=== PATIENT | male | born 1975 | race Caucasian/White ===

== ENCOUNTER 2020-08-19 13:44 | Outpatient (CLI) | payer BC ==
--- NOTE | 2020-08-19 16:04 | MRI ---
EXAM: MRI Lower Ext Jt Lt WO Con DATE: 08/19/2020 2:55 PM INDICATION: Left inguinal pain after performing a squat and feeling a pop in the left leg on 2019 COMPARISON: None. FINDING: There is a 2.2 x 3.9 x 5.3 cm peripherally T1 hyperintense, T2 hyperintense mass lesion wit hin the proximal musculature of the left vastus medialis muscle. There is mild surrounding edema within the proximal left VMO as well as within the adjacent fascia. No additional muscular signal abn ormality is evident. The visualized femur appears intact. The iliopsoas, left abductor musculature appears within normal limits. The left rectus femoris and hamstring origins appear within normal limi ts. No enlarged lymph nodes are evident. The sciatic nerve is normal-appearing. The visualized osseous structures of the left hemipelvis appear within normal limits. Intrapelvic contents reveal no acute abnormality. There is a fat-containing left inguinal hernia. The left hip joint reveals no joint effusion or paralabral cyst. IMPRESSION: 1. Grade 2 muscular strain of the proximal left vastus medialis musculature with associated intramusc ular hematoma.
== END 2020-08-19 13:45 | disposition home or self-care (01) ==
LOC: BICMRI 13:44
PROVIDERS: ATTEND Family Medicine
DX: R10.30 Lower abdominal pain, unspecified (principal); S76.112A Strain of left quadriceps muscle, fascia and tendon, initial encounter; S70.12XA Contusion of left thigh, initial encounter

== ENCOUNTER 2021-10-05 10:07 | Outpatient (CLI) | payer BC ==
[2021-10-05 10:54] LABS: #Basophils 0.1 10x3/uL (0.0-0.2); #Eosinphils 0.3 10x3/uL (0.0-0.5); #Monocytes 0.6 10x3/uL (0.0-1.1); %Basophils 0.8 % (0.0-2.0); %Eosinophils 2.8 % (0.0-6.0); %Lymphocytes 34.6 % (18.0-47.0); %Monocytes 6.9 % (0.0-10.0); %Neutrophils 54.4 % (40.0-75.0); Hemoglobin 15.6 g/dL (13.5-17.5); Mean Corpuscular HGB CONC 31.5 g/dL (32.0-36.0); Mean Corpuscular Hemoglobin 27.7 pg (27.0-33.0); Mean Corpuscular Volume 87.9 fl (81.2-95.1); Mean Platelet Volume 9.4 fl (7.4-10.4); Platelet Count 277 10x3/uL (150-450); RBC Distribution Width 13.3 % (11.5-14.5); Red Blood Cell (RBC) Count 5.64 10x6/uL (4.32-5.72); White Blood Cell (WBC) Count 9.2 10x3/uL (3.5-10.5)
[2021-10-05 19:54] LABS: SARS-CoV-2 PCR by NAA Not Detected (NotDetected)
== END 2021-10-05 10:08 | disposition home or self-care (01) ==
LOC: LABBT 10:07
PROVIDERS: ATTEND Surgery
DX: Z01.812 Encounter for preprocedural laboratory examination (principal); K40.90 Unilateral inguinal hernia, without obstruction or gangrene, not specified as recurrent; Z20.822 Contact with and (suspected) exposure to COVID-19
CPT/HCPCS: 85025; U0003; U0005

== ENCOUNTER 2021-10-08 06:33 | Day surgery (SDC) | payer BC ==
[2021-10-05 09:40] VITALS: BMI 32.1
[2021-10-08] MEDS ORDERED: Bupivacaine 0.25% HCL 30 ML VIAL ONE (07:03)
[2021-10-08] MEDS ORDERED: Xylocaine 1% w/ Epi 1:100K 10 ML VIAL ONE (07:03)
[2021-10-08] MEDS ORDERED: Midazolam HCl 2 mg/2 ml Vial ONE (07:06)
[2021-10-08] MEDS ORDERED: Fentanyl 100 MCG/2 ML VIAL ONE ×2 (07:06)
[2021-10-08] MEDS ORDERED: Levofloxacin 500 mg/D5W 100 ml Premix Bag ONE (07:38)
[2021-10-08] MEDS ORDERED: Dexamethasone 20 MG/5 ML VIAL ONE (07:56)
[2021-10-08] MEDS ORDERED: PROPOFOL 200 MG/20 ML VIAL ONE (07:56)
[2021-10-08] MEDS ORDERED: Lidocaine 1% PF 5 ML VIAL ONE (07:56)
[2021-10-08] MEDS ORDERED: Ondansetron PF 4 MG/2 ML Vial ONE (07:56)
[2021-10-08] MEDS ORDERED: Ketorolac Tromethamine 30 MG/ML VIAL ONE (08:53)
== END 2021-10-08 10:03 | disposition home or self-care (01) ==
LOC: SDC 06:33
PROVIDERS: ATTEND Surgery
PROC: 0YU60JZ Supplement Left Inguinal Region with Synthetic Substitute, Open Approach (ICD-10-PCS; principal; 2021-10-08)
DX: K40.90 Unilateral inguinal hernia, without obstruction or gangrene, not specified as recurrent (principal); D17.6 Benign lipomatous neoplasm of spermatic cord; Z79.899 Other long term (current) drug therapy; Z88.0 Allergy status to penicillin; Z91.040 Latex allergy status; Z91.048 Other nonmedicinal substance allergy status
CPT/HCPCS: C1781; J1100; J1885; J1956; J2250; J2405; J2704; J3010; S0020

== ENCOUNTER 2023-09-01 10:58 | Outpatient (CLI) | payer BC ==
[2023-09-01 13:33] LABS: #Eosinphils 0.2 10x3/uL (0.0-0.5); #Monocytes 0.7 10x3/uL (0.0-1.1); #Neutrophils 4.6 10x3/uL (1.5-8.4); %Basophils 0.5 % (0.0-2.0); %Eosinophils 2.4 % (0.0-6.0); %Lymphocytes 31.8 % (18.0-47.0); %Monocytes 8.3 % (0.0-10.0); %Neutrophils 56.5 % (40.0-75.0); Hematocrit 49.7 % (38.8-50.0); Hemoglobin 16.7 g/dL (13.5-17.5); Mean Corpuscular HGB CONC 33.6 g/dL (32.0-36.0); Mean Corpuscular Hemoglobin 29.6 pg (27.0-33.0); Mean Platelet Volume 9.8 fl (7.4-10.4); Platelet Count 264 10x3/uL (150-450); Red Blood Cell (RBC) Count 5.65 10x6/uL (4.32-5.72); White Blood Cell (WBC) Count 8.1 10x3/uL (3.5-10.5)
== END 2023-09-01 10:59 | disposition home or self-care (01) ==
LOC: LABBT 10:58
PROVIDERS: ATTEND Orthopaedic Surgery
DX: Z01.812 Encounter for preprocedural laboratory examination (principal); S46.211A Strain of muscle, fascia and tendon of other parts of biceps, right arm, initial encounter
CPT/HCPCS: 85025

== ENCOUNTER 2023-09-05 07:00 | Day surgery (SDC) | payer BC ==
[2023-09-01 11:44] VITALS: BMI 34.2
[2023-09-05] MEDS ORDERED: Midazolam HCl 2 mg/2 ml Vial ONE (08:39)
[2023-09-05] MEDS ORDERED: Bupivacaine PF 0.5% 30 ML VIAL ONE (08:39)
[2023-09-05] MEDS ORDERED: fentaNYL 50 mcg/mL 1 mL Vial ONE (08:39)
[2023-09-05] MEDS ORDERED: Bupivacaine HCl 0.5%/Epinephrine 1:200,000/PF 30 ml Vial ONE (08:50)
[2023-09-05] MEDS ORDERED: Lidocaine 1% (PF) 30 ML VIAL ONE (08:57)
[2023-09-05] MEDS ORDERED: LevoFLOXacin D5W 500 mg (100 mL) BAG ONE (09:06)
[2023-09-05] MEDS ORDERED: Lidocaine 1% PF 5 ML VIAL ONE (09:09)
[2023-09-05] MEDS ORDERED: PROPOFOL 20 ML ONE (09:09)
[2023-09-05] MEDS ORDERED: Ondansetron PF 4 MG/2 ML Vial ONE (09:09)
[2023-09-05] MEDS ORDERED: Dexamethasone 20 MG/5 ML VIAL ONE (09:09)
[2023-09-05] MEDS ORDERED: Lidocaine 2% 6 ML (Jelly) SYR ONE (09:09)
[2023-09-05] MEDS ORDERED: fentaNYL PF 100 MCG/2 ML SYRINGE ONE (09:09)
[2023-09-05] MEDS ORDERED: Clindamycin/D5W 900 mg/50 ml Premix Bag ONE (09:18)
[2023-09-05] MEDS ORDERED: ePHEDrine Sulfate 50 MG/10 ML VIAL ONE (10:17)
[2023-09-05] MEDS ORDERED: Sevoflurane 250 ML INH ANEST BOTTLE ONE (11:01)
== END 2023-09-05 13:30 | disposition home or self-care (01) ==
LOC: SDC 07:00
PROVIDERS: ATTEND Orthopaedic Surgery
PROC: 0LR Tendons, Replacement (ICD-10-PCS; principal; 2023-09-05)
DX: S46.211A Strain of muscle, fascia and tendon of other parts of biceps, right arm, initial encounter (principal); J32.9 Chronic sinusitis, unspecified; F10.90 Alcohol use, unspecified, uncomplicated; Z98.890 Other specified postprocedural states; Z88.0 Allergy status to penicillin; Z79.899 Other long term (current) drug therapy
CPT/HCPCS: C1713; J1100; J1956; J2001; J2250; J2405; J2704; J3010; J3490; S0020

== ENCOUNTER 2024-08-20 10:09 | Outpatient (CLI) | payer BC ==
[2024-08-20 10:47] LABS: #Basophils 0.06 10x3/uL (0.0-0.2); %Basophils 0.7 % (0.0-1.0); %Eosinophils 0.9 % (0.0-10.0); %Lymphocytes 22.9 % (21.0-51.0); %Monocytes 5.7 % (0.0-10.0); %Neutrophils 69.5 % (42.0-75.0); Hematocrit 53.1 % (42.0-52.0); Hemoglobin 17.8 g/dL (14.0-18.0); Mean Corpuscular HGB CONC 33.5 g/dL (32.0-36.0); Mean Corpuscular Hemoglobin 29.2 pg (27.0-31.0); Mean Corpuscular Volume 87.2 fL (78.0-98.0); Mean Platelet Volume 9.3 fL (7.4-10.4); Platelet Count 261 10x3/uL (130-400); Red Blood Cell (RBC) Count 6.09 mill/uL (4.70-6.10)
[2024-08-20 11:12] LABS: Anion Gap 14 mmol/L (10-20); BUN (Urea Nitrogen) 10 mg/dL (8.9-20.6); Calc. Creatinine Clearance 0 mL/min (70-130); Calcium 9.4 mg/dL (7.8-10.44); Carbon Dioxide 26 mmol/L (22-29); Chloride 102 mmol/L (98-107); Estimated GFR 90; Glucose 96 mg/dL (70-105); Potassium 4.4 mmol/L (3.5-5.1); Sodium 138 mmol/L (136-145)
== END 2024-08-20 10:10 | disposition home or self-care (01) ==
LOC: LABBT 10:09
PROVIDERS: ATTEND Orthopaedic Surgery
DX: Z01.818 Encounter for other preprocedural examination (principal); S46.212A Strain of muscle, fascia and tendon of other parts of biceps, left arm, initial encounter
CPT/HCPCS: 80048; 85025; 93005; 93010

== ENCOUNTER 2024-08-22 10:09 | Day surgery (SDC) | payer BC ==
[2024-08-20 10:20] VITALS: BMI 31.4
[2024-08-22] MEDS ORDERED: fentaNYL 50 mcg/mL 1 mL Vial ONE (12:13)
[2024-08-22] MEDS ORDERED: Midazolam HCl 2 mg/2 ml Vial ONE (12:13)
[2024-08-22] MEDS ORDERED: Clindamycin/D5W 600 MG in Premix 1 BAG IVPB SCH (13:00)
[2024-08-22] MEDS ORDERED: LevoFLOXacin 500 mg/D5W 500 MG in Premix 1 BAG IVPB SCH (13:00)
[2024-08-22] MEDS ORDERED: Ondansetron PF 4 MG/2 ML Vial IVP PRN (13:15)
[2024-08-22] MEDS ORDERED: Promethazine HCl 25 MG/ML VIAL IM PRN (13:15)
[2024-08-22] MEDS ORDERED: Zolpidem Tartrate 5 MG TAB PO PRN (13:15)
[2024-08-22] MEDS ORDERED: traMADol HCl 50 MG TAB PO PRN ×2 (13:15)
[2024-08-22] MEDS ORDERED: HYDROcodone/Acetaminophen 10/325 mg Tablet PO PRN ×2 (13:15)
[2024-08-22] MEDS ORDERED: Ropivacaine 0.2% 550 ML 550 ML NERVE BLCK SCH (13:15)
[2024-08-22] MEDS ORDERED: Clindamycin/D5W 600 mg/50 ml Premix Bag ONE (13:38)
[2024-08-22] MEDS ORDERED: PROPOFOL 20 ML ONE (14:29)
[2024-08-22] MEDS ORDERED: fentaNYL PF 100 MCG/2 ML SYRINGE ONE (14:29)
[2024-08-22] MEDS ORDERED: Lidocaine 1% PF 5 ML VIAL ONE (14:30)
[2024-08-22] MEDS ORDERED: Ondansetron PF 4 MG/2 ML Vial ONE (15:03)
[2024-08-22] MEDS ORDERED: Dexamethasone 4 mg/ml Vial ONE (15:03)
== END 2024-08-22 17:30 | disposition home or self-care (01) ==
LOC: SDC 10:09
PROVIDERS: ATTEND Orthopaedic Surgery
PROC: 0LQ40ZZ Repair Left Upper Arm Tendon, Open Approach (ICD-10-PCS; principal; 2024-08-22)
PROC: 3E0T3BZ Introduction of Anesthetic Agent into Peripheral Nerves and Plexi, Percutaneous Approach (ICD-10-PCS; 2024-08-22)
DX: S46.212A Strain of muscle, fascia and tendon of other parts of biceps, left arm, initial encounter (principal); Z98.890 Other specified postprocedural states; Z88.0 Allergy status to penicillin; Z91.040 Latex allergy status; Z79.2 Long term (current) use of antibiotics; Z79.1 Long term (current) use of non-steroidal anti-inflammatories (NSAID); Z79.899 Other long term (current) drug therapy; X50.0XXA Overexertion from strenuous movement or load, initial encounter
CPT/HCPCS: A4306; A6223; C1713; J1100; J1956; J2250; J2405; J2704; J2795; J3010; J3490